=== PATIENT | female | born 1990 | race Caucasian/White ===

== ENCOUNTER 2016-04-26 07:29 | Inpatient (IN) | payer BC, OTHER ==
[2016-04-26] VITALS (20 sets, daily range): BP systolic 115–154; BP diastolic 62–81
[~2016-04-26] VITALS: Ht 160 cm; Wt 80.7 kg
[2016-04-26] MEDS ORDERED: PRENATAL TABLE1 EAC3 PO (07:53)
[2016-04-26 10:04] LABS: EOSINOPHIL (%) 0.3 % (0-5); HEMATOCRIT 37.3 % (36.0-46.0); IMMATURE GRANULOCYTE (%) 0.4 % (0.0-0.7); IMMATURE GRANULOCYTE COUNT 0.1 K/uL; LYMPHOCYTE COUNT 1.5 K/uL (1.0-2.8); MCHC 34.9 G/DL (30.0-36.0); MCV 88.8 FL (83-99); MEAN PLAT.VOLUME 10.9 uM^3 (9.5-12.4); NEUTROPHIL COUNT 8.9 K/uL (1.8-6.4); PLATELET COUNT 163 K/uL (156-360); RBC DIS.WIDTH-CV 14.4 % (11.8-14.6); RBC DIS.WIDTH-SD 46.8 % (39-53); WHITE BLOOD COUNT 11.6 K/uL (4.1-10.2)
[2016-04-27] VITALS (8 sets, daily range): BP systolic 113–128; BP diastolic 59–79
[2016-04-27 07:47] LABS: EOSINOPHIL (%) 0.2 % (0-5); HEMATOCRIT 33.4 % (36.0-46.0); IMMATURE GRANULOCYTE (%) 0.4 % (0.0-0.7); IMMATURE GRANULOCYTE COUNT 0.1 K/uL; LYMPHOCYTE COUNT 1.6 K/uL (1.0-2.8); MCH 30.6 PG (29.0-34.0); MCHC 34.1 G/DL (30.0-36.0); MCV 89.8 FL (83-99); MEAN PLAT.VOLUME 10.5 uM^3 (9.5-12.4); MONOCYTE (%) 10.1 % (3-12); MONOCYTE COUNT 1.7 K/uL (0-0.8); NEUTROPHIL (%) 79.6 % (45-76); NEUTROPHIL COUNT 13.5 K/uL (1.8-6.4); PLATELET COUNT 161 K/uL (156-360); RBC DIS.WIDTH-CV 14.4 % (11.8-14.6); RBC DIS.WIDTH-SD 46.8 % (39-53); RED BLOOD COUNT 3.72 M/uL (3.80-5.20)
[2016-04-27 07:50] LABS: WHITE BLOOD COUNT 16.9 K/uL (4.1-10.2)
[2016-04-28 07:58] VITALS: BP 117/67
== END 2016-04-28 21:15 | disposition home or self-care (01) | DRG 775 ==
LOC: LDRP-OP 07:29 → 2WEST 07:30 → LDRP-OP 12:31 → 2WEST 23:42 → LDRP-OP 05-24 15:57
PROVIDERS: Advanced Practice Midwife
PROC: 10E0XZZ Delivery of Products of Conception, External Approach (ICD-10-PCS; principal; 2016-04-26)
PROC: 3E0P7GC Introduction of Other Therapeutic Substance into Female Reproductive, Via Natural or Artificial Opening (ICD-10-PCS; 2016-04-26)
PROC: 10907ZC Drainage of Amniotic Fluid, Therapeutic from Products of Conception, Via Natural or Artificial Opening (ICD-10-PCS; 2016-04-26)
DX: O99.344 Other mental disorders complicating childbirth (principal); F33.9 Major depressive disorder, recurrent, unspecified; Z37.0 Single live birth; Z3A.40 40 weeks gestation of pregnancy; E66.3 Overweight; O69.81X1 Labor and delivery complicated by cord around neck, without compression, fetus 1; O99.214 Obesity complicating childbirth; Z68.31 Body mass index [BMI] 31.0-31.9, adult
CPT/HCPCS: 85025; J0595; J7120; Q0169

== ENCOUNTER 2016-08-16 09:03 | Day surgery (SDC) | payer BC ==
[~2016-08-16] VITALS: Ht 7.6 cm; Wt 68.5 kg
[~2016-08-16 09:03] MED LIST: CAMILA0.35 MG PO; PRENATAL TABLE1 EAC3 PO
[2016-08-16 09:42] VITALS: BP 126/83
[2016-08-16] MEDS ORDERED: PERCOCET 5/31 TABLET PO (14:11)
[2016-08-16 15:45] VITALS: BP 113/64
[2016-08-16 16:35] VITALS: BP 110/58
== END 2016-08-16 16:58 | disposition home or self-care (01) ==
LOC: SDC 09:03
PROC: 0FT44ZZ Resection of Gallbladder, Percutaneous Endoscopic Approach (ICD-10-PCS; principal; 2016-08-16)
DX: K80.12 Calculus of gallbladder with acute and chronic cholecystitis without obstruction (principal); K82.1 Hydrops of gallbladder; Z82.49 Family history of ischemic heart disease and other diseases of the circulatory system; Z83.3 Family history of diabetes mellitus; Z80.9 Family history of malignant neoplasm, unspecified
CPT/HCPCS: 88304; J0131; J0330; J0690; J1100; J1170; J2250; J2405; J2710; J3010